=== PATIENT | male | born 1995 | race Caucasian/White ===

== ENCOUNTER 2021-04-08 21:23 | Emergency (ER) | payer SELFPAY ==
--- NOTE | 2021-04-08 22:06 | NUR ---
PT DOES NOT WANT TO BE SEEN.
--- NOTE | 2021-04-08 22:06 | NUR ---
CALLED TO TRIAGE. PT DOES NOT WANT TO BE SEEN. HE VERBALIZED THAGT HE IS FEELING BETTER. ASKED MULTIPLE TIME IF HE IS SUICIDAL OR HOMICIDAL BUT DENIED.
== END 2021-04-08 22:21 | disposition left against medical advice (07) ==
LOC: ER 21:28
DX: Z53.21 Procedure and treatment not carried out due to patient leaving prior to being seen by health care provider (principal)